=== PATIENT | female | born 1995 | race Caucasian/White ===

== ENCOUNTER 2023-11-08 08:52 | Day surgery (SDC) | payer OTHER ==
[~2023-11-08] VITALS: Ht 167.6 cm; Wt 73.6 kg
[~2023-11-08 08:52] MED LIST: ACETAMINOPHEN 1000MG 100ML IV BAG As Ordered ONE; LIDOCAINE 2% 100MG/5ML SDV (FOR ANES.) As Ordered ONE; METF850T4 PO; MIDAZOLAM INJ 2MG/2ML VIAL As Ordered ONE; MULTTAB61 PO; ONDANSETRON 4MG 2ML VIAL As Ordered ONE; ROCURONIUM BROMIDE 50MG/5ML VIAL As Ordered ONE; SUGAMMADEX SODIUM 500 MG/5 ML VIAL (BRIDION) As Ordered ONE; fentaNYL 100 MCG/2 ML INJECTION As Ordered ONE; propofoL 200 MG/20 ML VIAL As Ordered ONE
[2023-11-08] MEDS ORDERED: [UNRECOGNIZED DRUG - OTHER] PO (09:35)
[2023-11-08] MEDS ORDERED: LR 1,000 ML IV SCH (09:40)
[2023-11-08] MEDS ORDERED: fentaNYL 100 MCG/2 ML INJECTION IV PRN (11:05)
[2023-11-08] MEDS ORDERED: ONDANSETRON 4MG 2ML VIAL IV PRN (11:05)
[2023-11-08] MEDS: oxyCODONE 5MG TAB PO PRN (11:30)
[2023-11-08 11:55] VITALS: BP 121/76; TEMP 98.4; O2SAT 100
== END 2023-11-08 12:25 | disposition home or self-care (01) ==
LOC: M SDC 08:52
PROVIDERS: ATTEND Otolaryngology
DX: J35.1 Hypertrophy of tonsils (principal); Z88.8 Allergy status to other drugs, medicaments and biological substances
CPT/HCPCS: 42826; 81025; 88302; J0131; J1100; J2250; J2405; J3010

== ENCOUNTER 2023-12-27 10:09 | Inpatient (IN) | payer OTHER ==
[~2023-12-27] VITALS: Ht 170.2 cm; Wt 80.2 kg
[~2023-12-27 10:09] MED LIST changes: -ACETAMINOPHEN 1000MG 100ML IV BAG As Ordered ONE; -LIDOCAINE 2% 100MG/5ML SDV (FOR ANES.) As Ordered ONE; -MIDAZOLAM INJ 2MG/2ML VIAL As Ordered ONE; -ONDANSETRON 4MG 2ML VIAL As Ordered ONE; -ROCURONIUM BROMIDE 50MG/5ML VIAL As Ordered ONE; -SUGAMMADEX SODIUM 500 MG/5 ML VIAL (BRIDION) As Ordered ONE; +[UNRECOGNIZED DRUG - OTHER] PO; -fentaNYL 100 MCG/2 ML INJECTION As Ordered ONE; -propofoL 200 MG/20 ML VIAL As Ordered ONE
[2023-12-27] MEDS: MORPHINE 4 MG/ML 1ML VIAL IV PRN (11:06)
[2023-12-27 12:34] LABS: HEMATOCRIT 38.2 % (36.0-47.0); HEMOGLOBIN 12.6 g/dl (12.0-15.5); MEAN CORPUSCULAR HEMOGLOBIN 26.4 pg (27.0-33.0); MEAN CORPUSCULAR VOLUME 79.9 fl (80.0-96.0); PLATELET COUNT, AUTOMATED 223 10^3/uL (150-450); RED BLOOD COUNT 4.78 10^6/uL (4.00-5.40); WHITE BLOOD COUNT 11.5 10^3/uL (4.0-10.0)
[2023-12-27] MEDS ORDERED: BOOSTRIX VACCINE (TETANUS/DIPHTH/ACEL. PERTUSSIS) 0.5ML SYR IM ONE (12:40)
[2023-12-27 13:04] LABS: BLOOD UREA NITROGEN 11 MG/DL (9-23); CALCIUM LEVEL 8.5 MG/DL (8.5-10.1); CARBON DIOXIDE LEVEL 25 MMOL/L (20-31); CHLORIDE LEVEL 108 MMOL/L (98-107); GLOMERULAR FILTRATION RATE > 60.0 (>60); GLUCOSE, FASTING 101 MG/DL (60-100); HCG, SERUM QUALITATIVE NEGATIVE (NEGATIVE); POTASSIUM SERUM 4.1 MMOL/L (3.5-5.1); SODIUM LEVEL 138 MMOL/L (136-145)
[2023-12-27] MEDS ORDERED: ONDANSETRON 4MG 2ML VIAL IV PRN (13:10)
[2023-12-27] MEDS ORDERED: MOM 30ML SUSPENSION UDC PO PRN (13:10)
[2023-12-27] MEDS ORDERED: MAALOX 30 ML SUSP *UDC PO PRN (13:10)
[2023-12-27] MEDS: MORPHINE 2 MG/ML 1ML VIAL IV PRN (14:05)
[2023-12-27] MEDS ORDERED: HOME MED LIST COMPLETE! XX SCH (14:35)
[2023-12-27] MEDS: LIDOCAINE 1% MDV 20ML VIAL IM ONE (16:35)
[2023-12-27 20:50] VITALS: BP 125/71; TEMP 98.3; O2SAT 100
[2023-12-27] MEDS: ACETAMINOPHEN TAB 650MG DOSE (2X325MG) PO PRN (21:01)
[2023-12-27] MEDS: VANCOMYCIN 500MG/10ML VIAL As Ordered ONE (23:32)
[2023-12-28] MEDS ORDERED: MIDAZOLAM INJ 2MG/2ML VIAL As Ordered ONE (00:20)
[2023-12-28] MEDS ORDERED: ROCURONIUM BROMIDE 50MG/5ML VIAL As Ordered ONE (00:20)
[2023-12-28] MEDS ORDERED: propofoL 200 MG/20 ML VIAL As Ordered ONE (00:20)
[2023-12-28] MEDS ORDERED: fentaNYL 250 MCG/5 ML INJECTION As Ordered ONE (00:20)
[2023-12-28] MEDS ORDERED: LIDOCAINE 2% 100MG/5ML SDV (FOR ANES.) As Ordered ONE (00:20)
[2023-12-28] MEDS: ceFAZolin 2 GM/D5W 50 ML IV BAG As Ordered ONE (00:35)
[2023-12-28] MEDS: TRANEXAMIC ACID 100 MG/ML 10ML VIAL As Ordered ONE (00:40)
[2023-12-28] MEDS ORDERED: HYDROmorphone HCL 2MG/ML 1ML VIAL As Ordered ONE (01:15)
[2023-12-28] MEDS ORDERED: SUGAMMADEX SODIUM 500 MG/5 ML VIAL (BRIDION) As Ordered ONE (01:15)
[2023-12-28] MEDS ORDERED: ACETAMINOPHEN 1000MG 100ML IV BAG As Ordered ONE (01:15)
[2023-12-28] MEDS ORDERED: ONDANSETRON 4MG 2ML VIAL As Ordered ONE (01:15)
[2023-12-28] MEDS: ONDANSETRON 4MG 2ML VIAL IV PRN (03:58)
[2023-12-28 04:25] VITALS: BP 136/86; TEMP 97.7; O2SAT 94
[2023-12-28 04:43] VITALS: BP 136/87; TEMP 97; O2SAT 95
[2023-12-28 05:09] VITALS: BP 135/84; TEMP 97.9; O2SAT 94
[2023-12-28 05:43] VITALS: BP 135/83; TEMP 97.6; O2SAT 96
[2023-12-28 06:43] VITALS: BP 134/82; TEMP 97.2; O2SAT 97
[2023-12-28 07:09] LABS: HEMATOCRIT 36.2 % (36.0-47.0); HEMOGLOBIN 11.7 g/dl (12.0-15.5); MEAN CORPUSCULAR HEMOGLOBIN 26.2 pg (27.0-33.0); MEAN CORPUSCULAR HGB CONC 32.3 g/dl (32.0-36.5); MEAN CORPUSCULAR VOLUME 81.2 fl (80.0-96.0); PLATELET COUNT, AUTOMATED 199 10^3/uL (150-450); RED BLOOD COUNT 4.46 10^6/uL (4.00-5.40); WHITE BLOOD COUNT 10.7 10^3/uL (4.0-10.0)
[2023-12-28 07:18] LABS: BLOOD UREA NITROGEN 12 MG/DL (9-23); CALCIUM LEVEL 8.2 MG/DL (8.5-10.1); CARBON DIOXIDE LEVEL 25 MMOL/L (20-31); CHLORIDE LEVEL 106 MMOL/L (98-107); CREATININE FOR GFR 0.72 MG/DL (0.55-1.30); GLOMERULAR FILTRATION RATE > 60.0 (>60); GLUCOSE, FASTING 138 MG/DL (60-100); MAGNESIUM LEVEL 1.9 MG/DL (1.8-2.4); POTASSIUM SERUM 4.4 MMOL/L (3.5-5.1); SODIUM LEVEL 136 MMOL/L (136-145)
[2023-12-28] MEDS: MORPHINE 2 MG/ML 1ML VIAL IV PRN (07:57)
[2023-12-28] MEDS: ceFAZolin SOD 2 GM in IV 1 EA IV SCH (09:16)
[2023-12-28] MEDS ORDERED: PERCOCET 5MG/325MG TAB PO PRN (10:55)
[2023-12-28 10:57] LABS: HEMOGLOBIN A1c 5.3 % (4.0-6.0)
[2023-12-28] MEDS: PERCOCET 5MG/325MG TAB PO PRN (11:19)
[2023-12-28] MEDS ORDERED: PERCOCET PO (12:36)
[2023-12-28] MEDS ORDERED: ECOT81TA5 PO (12:36)
[2023-12-28] MEDS ORDERED: CEFD1CAP9 PO (12:39)
[2023-12-28] MEDS: ASPIRIN 81MG ENTERIC TABLET PO SCH (12:57)
[2023-12-28] MEDS: CYCLOBENZAPRINE 5MG TABLET PO ONE (12:57)
[2023-12-28] MEDS: KETOROLAC 30 MG/ML 1ML VIAL IV STA (12:58)
[2023-12-28] MEDS ORDERED: DICL50TA2 PO (13:04)
[2023-12-28 13:07] VITALS: BP 110/71; TEMP 97.2; O2SAT 95
[2023-12-28] MEDS ORDERED: ASPI81TAEC PO (14:35)
[2023-12-28] MEDS ORDERED: CYCL5TAB PO (14:38)
== END 2023-12-28 16:30 | disposition home or self-care (01) | DRG 494 ==
LOC: EDBD 10:09 → M ED 10:09 → M ED INP 13:07 → M MS5PR 20:47
PROVIDERS: ADMIT Student in an Organized Health Care Education/Training Program; ATTEND Student in an Organized Health Care Education/Training Program
PROC: 0QSG04Z Reposition Right Tibia with Internal Fixation Device, Open Approach (ICD-10-PCS; principal; 2023-12-28 00:15)
DX: S82.851A Displaced trimalleolar fracture of right lower leg, initial encounter for closed fracture (principal); Z88.8 Allergy status to other drugs, medicaments and biological substances; Y93.A5 Activity, obstacle course; X50.3XXA Overexertion from repetitive movements, initial encounter; Y92.89 Other specified places as the place of occurrence of the external cause; Y99.8 Other external cause status